=== PATIENT | male | born 1970 | race Caucasian/White ===

== ENCOUNTER 2018-06-02 10:14 | Inpatient (IN) | payer OTHER ==
[~2018-06-02] VITALS: Ht 182.9 cm; Wt 103.4 kg
[2018-06-02] MEDS ORDERED: METO-385 PO (10:18)
[2018-06-02] MEDS ORDERED: ALPR0.5T PO (10:18)
[2018-06-02] MEDS ORDERED: METF500T7 PO (10:18)
[2018-06-02] MEDS ORDERED: SODIUM CHLORIDE 0.9% 1,000 ML IV ONE (10:49)
[2018-06-02 10:56] LABS: BASOPHILS % 0.3 % (0.0-2.0); EOSINOPHILS % 1.5 % (0.0-5.0); HEMATOCRIT. 47.5 % (42.0-52.0); HEMOGLOBIN. 16.2 g/dL (14.0-18.0); LYMPHOCYTES % 23.1 % (20.0-50.0); MEAN CORPUSCULAR HEMOGLOBIN 31.6 pg (28.0-32.0); MEAN CORPUSCULAR VOLUME 92.6 fL (80.0-94.0); MEAN PLATELET VOLUME 8.1 fl (7.4-10.4); MONOCYTES % 11.4 % (2.0-8.0); NEUTROPHILS % 63.7 % (40.0-76.0); PLATELET 262 x1000/uL (130-400); RED BLOOD CELL COUNT 5.13 mill/uL (4.7-6.1); RED CELL DISTRIBUTION WIDTH 13.1 % (11.6-14.6)
[2018-06-02 11:04] LABS: CHLORIDE 106 mEq/L (98-107)
[2018-06-02 11:11] LABS: ETHANOL BLOOD < 10 mg/dL
[2018-06-02 20:10] VITALS: BP 119/90
[2018-06-02 20:30] VITALS: BP 119/90
[2018-06-02] MEDS ORDERED: ATOR10TA MT (20:39)
[2018-06-02] MEDS ORDERED: DEXTROSE 50% WATER 50ML SYRINGE IV PRN (20:45)
[2018-06-02] MEDS: INSULIN LISPRO 100 UNITS/ML SUBCUT SCH (21:00)
[2018-06-02] MEDS: BLOOD SUGAR DIAGNOSTIC STRIP TEST SCH (21:00)
[2018-06-02] MEDS: DEXT 5%/0.45% NACL 1000ML 1,000 ML IV SCH (22:48)
[2018-06-02] MEDS ORDERED: IPRATROPIUM/ALBUTEROL 0.5-3(2.5)MG/3ML NEB INH PRN (23:15)
[2018-06-02] MEDS ORDERED: LORAZEPAM 2MG/ML CPJ IV PRN (23:15)
[2018-06-02] MEDS ORDERED: ACETAMINOPHEN 650MG/20.3ML UDC GT PRN (23:15)
[2018-06-02] MEDS ORDERED: GUAIFENESIN 200MG/10ML SUGAR FREE UDC PO PRN (23:15)
[2018-06-02] MEDS ORDERED: DOCUSATE SODIUM 100MG CAPSULE PO PRN (23:15)
[2018-06-02] MEDS ORDERED: MAGNESIUM/ALUMINUM HYDROXIDE/SIMETHICONE 30ML UDC PO PRN (23:15)
[2018-06-02] MEDS ORDERED: ACETAMINOPHEN 650MG SUPP PR PRN (23:15)
[2018-06-02] MEDS ORDERED: CLONIDINE 0.1MG TABLET PO PRN (23:15)
[2018-06-02] MEDS ORDERED: DIPHENHYDRAMINE 50MG/ML VIAL IV PRN (23:15)
[2018-06-02] MEDS ORDERED: ONDANSETRON 4MG ODT PO PRN (23:45)
[2018-06-02 23:51] VITALS: BP 116/86
[2018-06-03 04:00] VITALS: BP 117/83
[2018-06-03] MEDS: SODIUM CHLORIDE 0.9% INJ 3ML FLUSH IVF SCH ×3 (06:00→21:49)
[2018-06-03 06:29] LABS: BASOPHILS % 0.5 % (0.0-2.0); EOSINOPHILS % 1.6 % (0.0-5.0); HEMATOCRIT. 43.4 % (42.0-52.0); LYMPHOCYTES % 33.3 % (20.0-50.0); MEAN CORPUSCULAR HEMOGLOBIN 31.9 pg (28.0-32.0); MEAN CORPUSCULAR VOLUME 92.1 fL (80.0-94.0); MEAN PLATELET VOLUME 8.3 fl (7.4-10.4); MONOCYTES % 11.7 % (2.0-8.0); NEUTROPHILS % 52.9 % (40.0-76.0); PLATELET 212 x1000/uL (130-400); RED BLOOD CELL COUNT 4.71 mill/uL (4.7-6.1); RED CELL DISTRIBUTION WIDTH 13.3 % (11.6-14.6)
[2018-06-03] MEDS: INSULIN LISPRO 100 UNITS/ML SUBCUT SCH ×4 (06:36→20:42)
[2018-06-03] MEDS: BLOOD SUGAR DIAGNOSTIC STRIP TEST SCH ×4 (06:36→20:42)
[2018-06-03 06:42] LABS: CHLORIDE 108 mEq/L (98-107)
[2018-06-03 07:32] LABS: HDL CHOLESTEROL 31 mg/dL (40-59); LDL CHOLESTEROL 108 mg/dL (5-100)
[2018-06-03 07:46] VITALS: BP 138/95
[2018-06-03 08:47] LABS: CLARITY URINE CLEAR (CLEAR); COLOR URINE YELLOW (YELLOW); KETONES URINE 1+ (NEGATIVE); LEUKOCYTE ESTERASE URINE NEGATIVE (NEGATIVE); NITRITE URINE NEGATIVE (NEGATIVE); OCCULT BLOOD URINE NEGATIVE (NEGATIVE); PH URINE 5.5 (4.5-8.0); PROTEIN URINE NEGATIVE (NEGATIVE); SPECIFIC GRAVITY URINE 1.032 (1.005-1.030)
[2018-06-03] MEDS ORDERED: NA PHOS,M-B/NA PHOS,DI-BA ENEMA 118ML PR PRN (09:00)
[2018-06-03 09:06] LABS: *AMPHETAMINES SCREEN URINE NEGATIVE (NEGATIVE); *BARBITURATES SCREEN URINE NEGATIVE (NEGATIVE); *BENZODIAZEPINES SCREEN URINE PRESUMTIVE POSITIVE (NEGATIVE); *COCAINE SCREEN URINE NEGATIVE (NEGATIVE)
[2018-06-03 09:07] LABS: CANNABINOID URINE SCREEN PRESUMTIVE POSITIVE (NEGATIVE); METHADONE URINE SCREEN NEGATIVE (NEGATIVE); OPIATES URINE SCREEN NEGATIVE (NEGATIVE); PHENCYCLIDINE URINE SCREEN NEGATIVE (NEGATIVE)
[2018-06-03] MEDS: ENOXAPARIN 30MG/0.3ML SYR SUBCUT SCH ×2 (09:08→20:57)
[2018-06-03 12:00] VITALS: BP 119/87
[2018-06-03 16:00] VITALS: BP 132/90
[2018-06-03 20:00] VITALS: BP 111/82
[2018-06-03] MEDS: DEXT 5%/0.45% NACL 1000ML 1,000 ML IV SCH (20:58)
[2018-06-03] MEDS: ATORVASTATIN CALCIUM 10MG TABLET PO SCH (21:56)
[2018-06-03] MEDS: METFORMIN HCL 500MG SR TABLET 24HR PO SCH (21:57)
[2018-06-04] VITALS: BP 118/82
[2018-06-04 04:00] VITALS: BP 128/89
[2018-06-04] MEDS: SODIUM CHLORIDE 0.9% INJ 3ML FLUSH IVF SCH ×3 (06:00→21:13)
[2018-06-04] MEDS: DEXT 5%/0.45% NACL 1000ML 1,000 ML IV SCH (06:11)
[2018-06-04] MEDS: BLOOD SUGAR DIAGNOSTIC STRIP TEST SCH ×4 (06:15→20:48)
[2018-06-04] MEDS: INSULIN LISPRO 100 UNITS/ML SUBCUT SCH ×4 (06:18→20:52)
[2018-06-04 08:00] VITALS: BP 116/77
[2018-06-04] MEDS: METFORMIN HCL 500MG SR TABLET 24HR PO SCH (09:03)
[2018-06-04] MEDS: ENOXAPARIN 30MG/0.3ML SYR SUBCUT SCH ×2 (09:04→21:11)
[2018-06-04 11:30] VITALS: BP 133/96
[2018-06-04] MEDS: ACETAMINOPHEN 325MG TABLET PO PRN ×2 (11:50→21:11)
[2018-06-04 16:00] VITALS: BP 138/83
[2018-06-04] MEDS: METFORMIN HCL 500MG TABLET PO SCH (18:18)
[2018-06-04 20:00] VITALS: BP 128/88
[2018-06-04] MEDS: ATORVASTATIN CALCIUM 10MG TABLET PO SCH (21:11)
[2018-06-04 22:53] LABS: CLARITY URINE CLOUDY (CLEAR); COLOR URINE YELLOW (YELLOW); KETONES URINE NEGATIVE (NEGATIVE); LEUKOCYTE ESTERASE URINE 3+ (NEGATIVE); NITRITE URINE POSITIVE (NEGATIVE); OCCULT BLOOD URINE 2+ (NEGATIVE); PH URINE 5.5 (4.5-8.0); PROTEIN URINE TRACE (NEGATIVE)
[2018-06-05] VITALS: BP 123/87
[2018-06-05 04:00] VITALS: BP 114/72
[2018-06-05] MEDS: BLOOD SUGAR DIAGNOSTIC STRIP TEST SCH ×2 (05:02→11:13)
[2018-06-05] MEDS: INSULIN LISPRO 100 UNITS/ML SUBCUT SCH ×2 (05:50→12:40)
[2018-06-05] MEDS: SODIUM CHLORIDE 0.9% INJ 3ML FLUSH IVF SCH (05:51)
[2018-06-05 08:00] VITALS: BP 125/80
[2018-06-05] MEDS: ENOXAPARIN 30MG/0.3ML SYR SUBCUT SCH (08:43)
[2018-06-05] MEDS: METFORMIN HCL 500MG TABLET PO SCH (08:43)
[2018-06-05] MEDS ORDERED: CEFTRIAXONE 1 G PREMIX 50 ML IV SCH ×2 (11:00→15:00)
[2018-06-05 12:00] VITALS: BP 125/87
[2018-06-05] MEDS ORDERED: AMPI250C13 MT (12:00)
[2018-06-05 13:27] VITALS: BP 125/87
== END 2018-06-05 17:15 | disposition home or self-care (01) | DRG 917 ==
LOC: ER 10:42 → 8WST 13:13 → EDBEDREQ 13:16 → EDBEDREQTM 13:16 → EDBEDREQSVC 13:16 → ENRESERV 18:50
PROVIDERS: ADMIT Family Medicine; ATTEND Family Medicine
DX: T42.4X2A Poisoning by benzodiazepines, intentional self-harm, initial encounter (principal); G92 Toxic encephalopathy; R45.851 Suicidal ideations; N39.0 Urinary tract infection, site not specified; F41.9 Anxiety disorder, unspecified; F32.9 Major depressive disorder, single episode, unspecified; F19.10 Other psychoactive substance abuse, uncomplicated; E78.5 Hyperlipidemia, unspecified; E78.00 Pure hypercholesterolemia, unspecified; I10 Essential (primary) hypertension; E11.9 Type 2 diabetes mellitus without complications; Z79.84 Long term (current) use of oral hypoglycemic drugs; Z79.899 Other long term (current) drug therapy; Y92.89 Other specified places as the place of occurrence of the external cause
CPT/HCPCS: 36415; 71045; 80048; 80053; 80061; 80305; 80307; 80329; 81003; 82962; 83605; 85025; 87086; 93005; 96360; 99285; C1893; G0482; J0696; J1650; J3490; J7030; A4315